=== PATIENT | female | born 2005 | race Two or more races ===

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

== ENCOUNTER 2025-01-03 23:09 | Emergency (ER) | payer MEDICAID, SELFPAY ==
[2025-01-03 23:13] VITALS: BMI 27.9
[2025-01-03 23:41] VITALS: BP 132/85; PULSE 91; RESP 20; TEMP 37; O2SAT 99
--- NOTE | 2025-01-03 23:49 | PD.EDSKIN ---
ED Skin Abcess FB-RME/HPI General Chief complaint: Skin/Abscess/Foreign Body Stated complaint: Abscess L buttock/hip Time Seen by Provider: 01/03/25 23:13 Arrival date/time: 01/03/25 23:09 19 year old female present to emergency room with c/o of left hip redness/infection for 5 days. pt report thought it was a pimple and tried to pop report gotten worsen since then. LOCATION: hip SEVERITY: Symptoms are described as being severe with limitations on activities of daily living QUALITY: Symptoms are described as being dull or achy CONTEXT: The patient is unable to identify any inciting events. DURATION/TIMING: The symptoms started approximately 5 day ago and have been constant this then, and have been progressive getting worse. ASSOCIATED SYMPTOMS: The patient is unable to identify any other associated symptoms. MODIFYING FACTORS: The patient is unable to identify any alleviating or aggravating symptoms. PERTINENT ROS: denies IVDU, states no immunocompromising condition, denies any penetrating trauma, no fever, no unexplained nausea or vomiting, no headache, no chest pain REVIEW OF SYSTEMS: See History of Present Illness - with the exception of those mentioned in the history of present illness, all other systems reviewed and reported as negative GENERAL: In general the patient is awake, interactive, in an emergency department gurney. HEAD/EYES/EARS/NOSE/THROAT: normo-cephalic, atraumatic, mucus membranes are moist, anicteric, palpebral conjunctiva is pink, trachea is midline. CARDIOVASCULAR: regular rate and regular rhythm, no murmurs, heart sounds are not distant, strong pulses in all four extremities that are equal and symmetric bilateral upper and lower extremities, normal capillary refill. BACK: left upper hip, erythema, warm to touch + induration, normal range of motion without pain. NEUROLOGICAL: cranio-facial features are symmetric, moves all four extremities equally without obvious limitations or weakness. EXTREMITY: no tenderness to palpation over the long bones or large joints of the bilateral upper and lower extremities, no joint swelling, no joint erythema, no signs of trauma, no unilateral leg swelling and no peripheral edema. SKIN: warm, dry, well-perfused, no jaundice, no telangiectasias or petechia. PSYCH: calm, cooperative, no evidence of psychosis or agitation Related Data Previous Rx's ?Medication ?Instructions ?Recorded clindamycin HCl 300 mg capsule 300 mg PO QID 10 days #40 caps 01/03/25 Allergies Allergy/AdvReac Type Severity Reaction Status Date / Time NKA Allergy Uncoded 01/03/25 23:12 Course Course Course Narrative: Patient is admitted to Emergency Department and evaluated. Patient appears well and is non-toxic and well hydrated. Patient appears to have an infected wound cellulitis. Instructed to apply warm compresses. Will start patient on outpatient abx. Instructed to return in 2 days for recheck. area marked, advised to return if cross the redness. Quality Measures none Orders Category Date Time Status Clindamycin [Cleocin] Med 01/03/25 23:47 Once 300 mg PO X1 ONE Vital Signs Vital signs: Vital Signs Temperature 98.6 F 01/03/25 23:41 Pulse Rate 91 01/03/25 23:41 Respiratory Rate 20 01/03/25 23:41 Blood Pressure 132/85 H 01/03/25 23:41 Pulse Oximetry (%) 99 01/03/25 23:41 Oxygen Delivery Method Room Air 01/03/25 23:41 Skin / Abscess / Foreign Body Patient data External records reviewed:: [facility] previous records Clinical information provided by:: patient Social determinants that could affect healthcare access:: none Patient has the following chronic illnesses:: n/a How is presenting disease/condition affected by chronic disease/condition?: no chronic disease Evaluation data The following diagnostics were reviewed and interpreted by me:: other (specify) (na ) Lab and/or radiology exams considered but not ordered:: n/a Interpretation Summary: n/a Medications / Prescriptions Medications or Prescriptions considered but not ordered:: n/a Medication administrations:: Medication Administration History Clindamycin HCl (Clindamycin 150 Mg Capsule) 300 mg PO X1 ONE Stop: 01/03/25 23:48 as stated Consultations Consultation(s) initiated? (list below): No Diagnosis Skin/Abscess Differential Diagnosis: abscess of skin or subcutaneous tissue, cellulitis and insect bites Most likely diagnosis given after review of the tests above:: cellulitis Admission Indicated Admission indicated?: not indicated Admission Request Was there a request for admission?: No Disposition Plan Disposition Plan: Discharge Discharge Attestation Discharge Attestation: The patient and all family members were given an opportunity to ask questions and understood the discharge instructions. Discharge instructions specifically effects, indications for sooner follow up or return to the emergency department, and the expected course of current diagnosis. Patient condition: Stable Discharge Plan Plan Patient Disposition: HOME (Self Care) Health Concerns: Follow with PMD as directed Take tylenol or motrin as need Return to ED if sx worsen Prescriptions/Referrals Prescriptions/Med Rec: New clindamycin HCl 300 mg capsule 300 mg PO QID 10 Days Qty: 40 0RF Problem List Clinical Impression: Cellulitis Patient/Caregiver Discharge Instructions Education Materials: ED Cellulitis Print Language: [place] Stand Alone Forms: Raya Award Info., Patient Portal Info Letter
[2025-01-03] MEDS: CLINDAMYCIN 150 MG CAPSULE 300 MG PO (23:56)
== END 2025-01-04 00:01 | disposition home or self-care (01) ==
LOC: SERX 01-04 00:04
PROVIDERS: Emergency Provider Emergency Medicine
DX: L03.116 Cellulitis of left lower limb (principal)
CPT/HCPCS: 99282; A9270